=== PATIENT | male | born 1975 | race Two or more races ===

== ENCOUNTER 2016-09-25 06:47 | Emergency (ER) | payer SELFPAY ==
--- NOTE | ~2016-09-25 | EKG ---
PATIENT: CEHLA EDDY UNIT #: [id number] Ventricular Rate: 71 BPM Atrial Rate: 71 BPM P-R Interval: 166 ms QRS Duration: 88 ms Q-T Interval: 358 ms QTC Calculation(Bezet): 389 ms P [place]: 61 degrees Calculated R [place]: 56 degrees Calculated T [place]: 47 degrees Diagnosis Line: Normal sinus rhythm Diagnosis Line: Early repolarization Diagnosis Line: Normal ECG Diagnosis Line: No previous ECGs available Diagnosis Line: Confirmed by LUIGI MO MD ([id number]) on 09/27/2016 Diagnosis Line: 5:35:45 PM INTERPRETING MD: CHELY FARR
[~2016-09-25 06:47] MED LIST: FAMOTIDINE20 M1 PO; HYDROXYZINE HCL10 MG PO; METOPROLOL TAR25 MG PO; ONDANSETRON HCL4 M1 PO
[2016-09-25 06:50] LABS: BASOPHIL% 0.6 % (0-2.5); EOSINOPHIL# 0.1 X10e3 (0-0.7); EOSINOPHIL% 1.2 % (0.0-7.0); HEMATOCRIT 44.7 % (38.0-50.0); HEMOGLOBIN 15.2 gm/dL (13.0-16.0); LYMPHOCYTE# 1.4 X10e3 (1.0-3.5); LYMPHOCYTE% 22.5 % (17.0-45.0); MEAN CELL VOLUME 85.7 FL (83-96); MEAN CORPUSCULAR HEMOGLOBIN 29.1 PG (28-34); MEAN CORPUSCULAR HGB CONC 33.9 g/dL (30-36); MONOCYTE# 0.5 X10e3 (0-1.0); MONOCYTE% 8.9 % (3.0-12.0); NEUTROPHIL# 4.1 X10e3 (1.5-7.1); NEUTROPHIL% 66.8 % (40-75); PLATELET COUNT 186 X10e3 (140-420); RED BLOOD COUNT 5.22 X10e (3.90-5.60); RED CELL DISTRIBUTION WIDTH 12.2 % (11.0-15.5); WHITE BLOOD COUNT 6.1 X10e3 (4.0-10.5)
[2016-09-25 06:56] LABS: DIFF IND NO
[2016-09-25 07:07] LABS: BLOOD UREA NITROGEN 12 mg/dL (9-23); CALCIUM SERUM 9.2 mg/dL (8.4-10.2); CARBON DIOXIDE 27 mmol/L (22-31); CHLORIDE 104 mmol/L (100-111); CREATININE SERUM 0.8 mg/dL (0.6-1.4); GLOM FILT RATE Estimated ABOVE60 mL/min (>60); GLUCOSE FASTING 111 mg/dL (70-110); POTASSIUM 3.9 mmol/L (3.5-5.1); SODIUM 139 mmol/L (135-145)
[2016-09-25 07:09] LABS: POC - CKMB 1.1 ng/mL (0.0-7.9); POC - MYOGLOBIN 58.4 ng/mL (0.0-169.0); POC - TROPONIN <0.05 ng/mL (<=0.05)
== END 2016-09-25 08:04 | disposition home or self-care (01) ==
LOC: SED 06:47
PROVIDERS: Emergency Medicine
DX: R00.2 Palpitations (principal); F17.200 Nicotine dependence, unspecified, uncomplicated; I10 Essential (primary) hypertension
CPT/HCPCS: 36415; 80048; 82553; 83874; 84484; 85025; 93005; 99283

== ENCOUNTER 2016-10-04 03:47 | Emergency (ER) | payer SELFPAY ==
[2016-10-04 03:57] LABS: BASOPHIL% 0.6 % (0-2.5); EOSINOPHIL# 0.2 X10e3 (0-0.7); EOSINOPHIL% 2.6 % (0.0-7.0); HEMATOCRIT 43.4 % (38.0-50.0); HEMOGLOBIN 14.7 gm/dL (13.0-16.0); LYMPHOCYTE# 2.1 X10e3 (1.0-3.5); MEAN CELL VOLUME 85.8 FL (83-96); MEAN CORPUSCULAR HGB CONC 33.8 g/dL (30-36); MEAN PLATELET VOLUME 8.7 FL (6.5-11.5); MONOCYTE# 0.8 X10e3 (0-1.0); MONOCYTE% 10.4 % (3.0-12.0); NEUTROPHIL# 4.5 X10e3 (1.5-7.1); NEUTROPHIL% 59.4 % (40-75); PLATELET COUNT 172 X10e3 (140-420); RED BLOOD COUNT 5.06 X10e (3.90-5.60); RED CELL DISTRIBUTION WIDTH 12.4 % (11.0-15.5); WHITE BLOOD COUNT 7.7 X10e3 (4.0-10.5)
[2016-10-04 03:58] LABS: DIFF IND NO
[2016-10-04 04:30] LABS: ALBUMIN SERUM 4.1 g/dL (3.5-5.0); ALKALINE PHOSPHATASE 57 U/L (32-92); ALT (SGPT) 33 U/L (10-40); AMYLASE 32 U/L (0-46); AST (SGOT) 21 U/L (10-42); BILIRUBIN, DIRECT 0.1 mg/dL (0.0-0.2); BILIRUBIN,INDIRECT 0.6 mg/dL (0.0-0.9); BILIRUBIN,TOTAL 0.7 mg/dL (0.2-2.0); BLOOD UREA NITROGEN 14 mg/dL (9-23); BUN/CREATININE RATIO 15.55; CALCIUM SERUM 9.3 mg/dL (8.4-10.2); CARBON DIOXIDE 29 mmol/L (22-31); CHLORIDE 104 mmol/L (100-111); CREATININE SERUM 0.9 mg/dL (0.6-1.4); GLOM FILT RATE Estimated ABOVE60 mL/min (>60); GLUCOSE FASTING 100 mg/dL (70-110); LIPASE 29 U/L (22-51); POTASSIUM 3.6 mmol/L (3.5-5.1); PROTEIN TOTAL SERUM 6.7 g/dL (6.0-8.3); SODIUM 139 mmol/L (135-145)
== END 2016-10-04 05:00 | disposition home or self-care (01) ==
LOC: CED 03:47
PROVIDERS: Emergency Medicine
DX: R10.13 Epigastric pain (principal); B96.81 Helicobacter pylori [H. pylori] as the cause of diseases classified elsewhere; I10 Essential (primary) hypertension; F17.200 Nicotine dependence, unspecified, uncomplicated; Z79.899 Other long term (current) drug therapy
CPT/HCPCS: 36415; 80048; 80076; 82150; 83690; 85025; 86677; 99284

== ENCOUNTER 2016-11-01 10:02 | Emergency (ER) | payer SELFPAY ==
--- NOTE | ~2016-11-01 | CT71 ---
[facility] A Service of [facility] RADIOLOGY TEXT RESULTS PATIENT: CHELA EDDY LOCATION: [facility] : [birth year] UNIT #: [id number] AGE: [address]: Jayme Manrique MD SEX: M ORDER DR: [id number] [facility] [address] [place], [place] [address] [id number] E MR#: [id number] Acc #: [id number] NAME: CHELA EDDY : 1975 SEX: M STUDY DATE/TIME: 11/01/2016 11:47 UNIT: DAVI ROOM: STUDY DESCRIPTION: CT Head Wo Contrast Attending Physician: Jayme Manrique M.D. Referring Physician: Self Referral-Refer Use Only Ordering Physician: Jayme [id number] Radha Manrique Primary Care Physician: Primary Care Physician No MEDICAL IMAGING REPORT This report is preliminary unless electronic signature is present EXAM CT head without contrast dated 11/01/2016 COMPARISON None HISTORY Shortness of air, dizziness and tiredness today. TECHNIQUE This CT exam was performed with one or more of the following radiation dose reduction techniques: automatic exposure control, adjustment of mA and/or kV according to patient size, and iterative reconstruction. FINDINGS CT of the head was obtained without contrast in the axial plane. Axial noncontrast images were obtained from the skull base to the vertex. Ventricular size and configuration are normal. There is no evidence of acute infarct or hemorrhage. There are no extra-axial fluid collections. No mass lesion or mass effect is seen. There are no skull fractures. Bilateral frontal, left maxillary and left ethmoid sinus mucosal thickening are noted. It is relatively worse in the left ethmoid sinus. Correlate with sinusitis. IMPRESSION Normal noncontrast head CT. Dictated by... Roberto Wakefield M.D. THIS IS AN ELECTRONICALLY VERIFIED REPORT [facility] A Service of [facility] RADIOLOGY TEXT RESULTS PATIENT: CHELA EDDY LOCATION: [facility] : [birth year] UNIT #: [id number] AGE: [address]: Jayme Manrique MD SEX: M ORDER DR: Roberto Wakefield M.D. at 11/02/2016 2:57 PM CPR/jw TD: 11/01/2016 12:34 JOB #: [id number] MEDICAL IMAGING REPORT Page 1 of 1 COPY
--- NOTE | ~2016-11-01 | CR72 ---
[facility] A Service of [facility] & [facility] RADIOLOGY TEXT RESULTS PATIENT: CHELA EDDY LOCATION: [facility] : 79 UNIT #: [id number] AGE: [address]: Jayme Manrique MD SEX: M ORDER DR: [id number] [facility] [address] [place], [place] [address] [id number] E MR#: [id number] Acc #: [id number] NAME: CHELA EDDY : 1975 SEX: M STUDY DATE/TIME: 11/01/2016 10:19 UNIT: [facility] ROOM: STUDY DESCRIPTION: CR Chest Single View Portable Attending Physician: Jayme Manrique M.D. Referring Physician: Self Referral-Refer Use Only Ordering Physician: Jayme [id number] Radha Manrique Primary Care Physician: Primary Care Physician No MEDICAL IMAGING REPORT This report is preliminary unless electronic signature is present EXAM Frontal chest 11/01/2016 INDICATIONS 41-year-old male with dizziness, shortness of air, chest pain and chest tightness for a week. Tobacco abuse, hypertension. TECHNIQUE Frontal chest. No comparisons. FINDINGS Cardiac silhouette unremarkable. Vascularity normal. Lungs clear. No pneumothorax. IMPRESSION Negative frontal chest. We have no comparisons. Dictated by... Deon Hoffmann M.D. THIS IS AN ELECTRONICALLY VERIFIED REPORT Deon Hoffmann M.D. at 11/01/2016 5:12 PM Lou TD: 11/01/2016 11:35 JOB #: [id number] MEDICAL IMAGING REPORT Page 1 of 1 COPY
--- NOTE | ~2016-11-01 | EKG ---
PATIENT: CHELA EDDY UNIT #: [id number] Ventricular Rate: 71 BPM Atrial Rate: 71 BPM P-R Interval: 160 ms QRS Duration: 90 ms Q-T Interval: 370 ms QTC Calculation(Bezet): 402 ms P [place]: 39 degrees Calculated R [place]: 52 degrees Calculated T [place]: 33 degrees Diagnosis Line: Normal sinus rhythm Diagnosis Line: Early repolarization Diagnosis Line: Normal ECG Diagnosis Line: Diagnosis Line: Confirmed by SOPHIA NELSON MD ([id number]) on 11/02/2016 Diagnosis Line: 6:09:34 AM INTERPRETING MD: OMAR FARR
[2016-11-01 11:06] LABS: URINE SOURCE CLEAN CATCH
[2016-11-01 11:11] LABS: BASOPHIL% 0.4 % (0-2.5); EOSINOPHIL# 0.1 X10e3 (0-0.7); EOSINOPHIL% 1.4 % (0.0-7.0); HEMATOCRIT 46.6 % (38.0-50.0); HEMOGLOBIN 15.8 gm/dL (13.0-16.0); LYMPHOCYTE# 1.4 X10e3 (1.0-3.5); LYMPHOCYTE% 23.4 % (17.0-45.0); MEAN CELL VOLUME 85.8 FL (83-96); MEAN CORPUSCULAR HGB CONC 33.8 g/dL (30-36); MEAN PLATELET VOLUME 8.6 FL (6.5-11.5); MONOCYTE# 0.5 X10e3 (0-1.0); MONOCYTE% 8.7 % (3.0-12.0); NEUTROPHIL% 66.1 % (40-75); PLATELET COUNT 182 X10e3 (140-420); RED BLOOD COUNT 5.43 X10e (3.90-5.60); RED CELL DISTRIBUTION WIDTH 12.6 % (11.0-15.5); WHITE BLOOD COUNT 6.1 X10e3 (4.0-10.5)
[2016-11-01 11:12] LABS: DIFF IND NO
[2016-11-01 11:13] LABS: URINE APPEARANCE CLEAR; URINE BILIRUBIN NEG (NEG); URINE BLOOD NEG (NEG); URINE COLOR YELLOW; URINE GLUCOSE NEG (NEG); URINE KETONE NEG (NEG); URINE LEUKOCYTE ESTERASE NEG (NEG); URINE NITRATE NEG (NEG); URINE PROTEIN NEG (NEG); URINE SPECIFIC GRAVITY 1.009 (1.003-1.035); URINE UROBILINOGEN 0.2 MG/DL (NEG)
[2016-11-01 11:15] LABS: CULTURE INDICATED? NO
[2016-11-01 11:40] LABS: ALBUMIN SERUM 4.6 g/dL (3.5-5.0); ALKALINE PHOSPHATASE 62 U/L (32-92); ALT (SGPT) 31 U/L (10-40); AST (SGOT) 21 U/L (10-42); BILIRUBIN, DIRECT <0.1 mg/dL (0.0-0.2); BILIRUBIN,INDIRECT 0.4 mg/dL (0.0-0.9); BILIRUBIN,TOTAL 0.5 mg/dL (0.2-2.0); BLOOD UREA NITROGEN 9 mg/dL (9-23); BUN/CREATININE RATIO 12.85; CALCIUM SERUM 9.6 mg/dL (8.4-10.2); CARBON DIOXIDE 26 mmol/L (22-31); CHLORIDE 104 mmol/L (100-111); CREATININE SERUM 0.7 mg/dL (0.6-1.4); GLOM FILT RATE Estimated 118.9 mL/min (>60); GLUCOSE FASTING 98 mg/dL (70-110); POTASSIUM 3.8 mmol/L (3.5-5.1); PROTEIN TOTAL SERUM 7.4 g/dL (6.0-8.3); SODIUM 139 mmol/L (135-145)
[2016-11-01 19:14] LABS: POC - CKMB <1.0 ng/mL (0.0-7.9); POC - TROPONIN <0.05 ng/mL (<=0.05)
== END 2016-11-01 12:43 | disposition home or self-care (01) ==
LOC: CED 10:02
PROVIDERS: Emergency Medicine
DX: R42 Dizziness and giddiness (principal); I10 Essential (primary) hypertension; Z79.899 Other long term (current) drug therapy
CPT/HCPCS: 36415; 70450; 71010; 80048; 80076; 81003; 82553; 82947; 84484; 85025; 93005; 96374; 99284; J2405